=== PATIENT | male | born 1990 | race Caucasian/White ===

== ENCOUNTER 2017-10-28 13:09 | Emergency (ER) | payer OTHER ==
[~2017-10-28] VITALS: Ht 175.3 cm; Wt 81.6 kg
--- NOTE | 2017-10-28 16:16 | ED GENERAL ADULT ---
History of Present Illness General Chief Complaint: General Adult Stated Complaint: "I CANT STOP EATING, NOW IM THROWING UP" Source: patient, family Exam Limitations: no limitations Allergies Coded Allergies: No Known Allergies (10/28/17) Reconcile Medications Sucralfate (Carafate) 1 GRAM TABLET 1 TAB PO 4 TIMES/DAY PRN GASTRITIS Triage Note: PT STATES HE HAS BEEN EATING LARGE AMOUNTS OF FOOD SINCE LAST WEEK. STATES HE CONSTANTLY HAS HUNGER PAINS AND CAN'T GET FULL. STATES TODAY HE STARTED VOMITING WITH ABDOMINAL PAIN BUT HE STILL HAS THE CONSTANT HUNGER PAIN Triage Nurses Notes Reviewed? yes Onset: Gradual Duration: week(s): (1) Timing: no prior history Injury Environment: home Severity: moderate No Modifying Factors: none HPI: Patient is a 27-year-old male visiting to the emergency department she complained of increasing appetite, hunger pains and one episode of emesis today. Symptoms started about one week ago. He reports that he's been eating 3 or 4 meals per meals time. One episode of emesis today around noon. She denies any current nausea. He does report that when he eats the pain in his abdomen improved. Denies any diarrhea. Last bowel movement was yesterday. Has not taken anything for symptoms in the past. Denies any urinary frequency or urgency or dysuria. Denies noticing anything in his stool. No blood in the stool. Denies blood in the vomit today. No recent travel or sick contacts. (Jossie Hong) Vital Signs & Intake/Output Vital Signs & Intake/Output Vital Signs Date Time Temp Pulse Resp B/P B/P Pulse O2 O2 Flow FiO2 Mean Ox Delivery Rate 10/28 1840 98.2 72 18 130/74 97 Room Air 10/28 1324 97.2 90 20 120/74 97 Room Air (Tamy GOODWIN,Clive Gonzalez) Past History Travel History Traveled to [place] past 21 day No Medical History Any Pertinent Medical History? see below for history Surgical History Surgical History: non-contributory Psychosocial History What is your primary language [place] Tobacco Use: Never used ETOH Use: occasional use Illicit Drug Use: denies illicit drug use Family History Hx Contributory? No (Jossie Hong) Review of Systems Review of Systems Constitutional: Reports: no symptoms. Comments Review of systems: See HPI, All other systems negative. Constitutional, no chills fever or weight loss HEENT: No visual changes no sore throat no congestion Cardiovascular: No chest pain ,palpitation , orthopnea or ankle swelling Skin, no jaundice no rashes Respiratory: No dyspnea cough sputum or hemoptysis GI: No diarrhea : No dysuria No hematuria Muscle skeletal: no back pain, no neck pain, Neurologic: No numbness no confusion Psych: No stress anxiety or depression,. Heme/endocrine: No bruising no bleeding no polyuria or polydipsia Immunology: No splenectomy or history of AIDS (Jossie Hong) Physical Exam Physical Exam General Appearance: well developed/nourished, no apparent distress, alert, awake , comfortable Comments: Well-developed well-nourished person in no acute distress HEENT: . Pupils equally round and reactive to light and accommodation. Nose is atraumatic. Neck: Normal infection Back: Nontender, no CVA tenderness. Cardiovascular: Regular rate and rhythms no murmurs rubs or gallops, normal JVP Respiratory: Chest nontender. No respiratory distress.breath sounds clear to auscultation bilaterally Abdomen: Soft, nontender nondistended, no appreciable organomegaly. Normal bowel sounds. No ascites, no rebound or guarding. Extremity: No edema Neuro: Alert oriented x3 Skin: No appreciable rash on exposed skin, skin is warm and dry. Psych: Mood and affect is normal, memory and judgment is normal. Core Measures ACS in differential dx? No CVA/TIA Diagnosis: No Sepsis Present: No Sepsis Focused Exam Completed? No (Jossei Hong) Progress Differential Diagnoses I considered the following diagnoses in my evaluation of the patient: Tapeworm, gastritis, peptic ulcer disease, duodenal ulcer, H. pylori, VIRAL SYNDROME Initial ED EKG: none (Jossie Hong) Plan of Care: Orders Procedure Date/time Status Add-on Test (ER Only) 10/28 1726 Active Add-on Test (ER Only) 10/28 1710 Active CULTURE,STOOL 10/28 1703 Active OVA AND PARASITE ANTIGENS 10/28 170 Active URINE DRUG SCREEN FOR ER ONLY 10/28 1638 Complete URINALYSIS 10/28 1638 Complete TSH REFLEX 10/28 1618 Complete LIPASE 10/28 1601 Complete COMPREHENSIVE METABOLIC PANEL 10/28 1601 Complete CBC WITHOUT DIFFERENTIAL 10/28 1601 Complete AMYLASE 10/28 1601 Complete Laboratory Tests 10/28/17 1733: Urine Opiates Screen 143.00, Methadone Screen < 40, Barbiturate Screen < 60, Ur Phencyclidine Scrn < 6.00, Amphetamines Screen < 100, U Benzodiazepines Scrn < 85, Urine Cocaine Screen < 50, Urine Cannabis Screen < 5.00, Urine Color STRAW, Urine Clarity CLEAR, Urine pH 6.0, Ur Specific [place] 1.010, Urine Protein NEG, Urine Ketones NEG, Urine Nitrite NEG, Urine Bilirubin NEG, Urine Urobilinogen 0.2, Ur Leukocyte Esterase NEG, Ur Microscopic EXAM NOT REQUIRED, Urine Hemoglobin NEG, Urine Glucose NEG 10/28/17 1618: Anion Gap 16, Estimated GFR > 60, BUN/Creatinine Ratio 22.2, Glucose 92, Calcium 9.4, Total Bilirubin 0.6, AST 22, ALT 42, Alkaline Phosphatase 47, Total Protein 7.8, Albumin 4.9, Globulin 2.9, Albumin/Globulin Ratio 1.7, Amylase 56, Lipase 110, TSH &T3 &Free T4 Intrp 3.360, CBC w Diff NO MAN DIFF REQ, RBC 5.96, MCV 80.3, MCH 26.6 L, RDW 13.0, MPV 7.8, Gran % 58.9, Lymphocytes % 21.1, Monocytes % 8.9, Eosinophils % 10.9 H, Basophils % 0.2, Absolute Granulocytes 4.0, Absolute Lymphocytes 1.4, Absolute Monocytes 0.6, Absolute Eosinophils 0.7, Absolute Basophils 0, PUBS MCHC 33.1 Microbiology 10/28 1711 STOOL: Cryptosporidium Antigen - RECD 10/28 1711 STOOL: Giardia Antigen (HUMBERTO) - RECD 10/28 1711 STOOL: Stool Culture - RECD Patient has no abdominal pain on exam here in the emergency department. He is afebrile. No elevation in white blood cell count. There is a increase in eosinophils. We did obtain a stool sample here in the emergency department. We will call him with the results. Patient started on Carafate. Patient also given GI follow-up as he may need endoscopy. (Jossie Hong) (Tamy GOODWIN,Clive Gonzalez) Departure Departure Time of Disposition: 1823 Disposition: HOME OR SELF CARE Condition: Stable Clinical Impression Primary Impression: Abdominal pain Qualifiers: Abdominal location: generalized Qualified Code: R10.84 - Generalized abdominal pain Referrals: Valentina GOODWIN,Fidel Sanders (PCP/Family) Julio C GOODWIN,Madhu Parker Additional Instructions: Follow-up with automatic line set up mechanic, call tomorrow to make appointment. YOU will need aN endoscopy for further evaluation. Increase fluids. Take CARAFATE as prescribed. Return for worsening symptoms or concerns. Departure Forms: Customer Survey General Discharge Information Prescriptions: Current Visit Scripts Sucralfate (Carafate) 1 TAB PO 4 TIMES/DAY PRN GASTRITIS #120 TAB (Jossie Hong) PA/WOOD DRILL OPERATOR Co-Sign Statement Statement: ED Attending supervision documentation- [] I saw and evaluated the patient. I have also reviewed all the pertinent lab results and diagnostic results. I agree with the findings and the plan of care as documented in the PA's/WOOD DRILL OPERATOR's documentation. [x] I have reviewed the ED Record and agree with the PA's/WOOD DRILL OPERATOR's documentation. pa to add thyroid screen. [] Additions or exceptions (if any) to the PAs/WOOD DRILL OPERATOR's note and plan are summarized below: [] (Tamy GOODWIN,Clive Gonzalez) Critical Care Note Critical Care Note Critical Care Time: non-applicable (Jossie Hong)
[2017-10-28 16:33] LABS: ABSOLUTE BASOPHIL COUNT 0 /CUMM (0.0-0.2); ABSOLUTE EOSINOPHIL COUNT 0.7 /CUMM (0.0-0.7); ABSOLUTE LYMPH COUNT 1.4 /CUMM (1.2-3.4); ABSOLUTE MONOCYTE COUNT 0.6 /CUMM (0.10-0.60); BASOPHIL % 0.2 % (0.0-2.0); EOSINOPHIL % 10.9 % (0-5); GRANULOCYTE % 58.9 % (42.2-75.2); HEMATOCRIT 47.9 % (42-52); MEAN CORPUSCULAR HGB 26.6 PG (27.0-31.0); MEAN CORPUSCULAR HGB CONC 33.1 G/DL (33.0-37.0); MEAN CORPUSCULAR VOLUME 80.3 FL (80.0-94.0); MEAN PLATELET VOLUME 7.8 FL (7.4-10.4); PLATELET COUNT 197 /CUMM (130-400); RED BLOOD CELL CT 5.96 /CUMM (4.70-6.10); WHITE BLOOD CELL COUNT 6.7 /CUMM (4.8-10.8)
[2017-10-28] MEDS ORDERED: CARAFATE1 G1 PO (18:28)
[2017-10-28 18:40] VITALS: BP 130/74
== END 2017-10-28 18:44 ==
LOC: ERH 13:09
PROVIDERS: Physician Assistant
DX: R10.9 Unspecified abdominal pain (principal)
CPT/HCPCS: 87338; 80307; 81003; 87045; 87328; 87329